=== PATIENT | male | born 1935 | race Caucasian/White ===

== ENCOUNTER 2017-08-19 08:33 | Emergency (ER) | payer MEDICARE ==
--- NOTE | 2017-08-19 08:41 | EDM.PDOC ---
ED HPI GENERAL MEDICAL PROBLEM - General Chief Complaint: Cardiovascular Problem Stated Complaint: NAUSEA,VOMITING,WEAKNESS. IN BY AMB Time Seen by Provider: 08/19/17 08:33 Source of Information: Reports: Patient History Limitations: Reports: No Limitations - History of Present Illness INITIAL COMMENTS - FREE TEXT/NARRATIVE: This 82 yo male patient was brought to the ED by [facility] due to generalized weakness, nausea/vomiting, shortness of breath and dizziness. The patient reports his weakness, shortness of breath and nausea started this morning. The patient reports his dizziness has been intermittent when he turns his head for "a while." The patient reports he is on a "pill for stomach gas." The patient reports no additional symptoms. 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 ED EXAM, GENERAL - Physical Exam Exam: See Below Exam Limited By: No Limitations General Appearance: Alert, WD/WN, Moderate Distress, Thin Eye Exam: Bilateral Eye: EOMI, Normal Inspection, PERRL Ears: Normal External Exam, Normal Canal, Hearing Grossly Normal, Normal TMs Nose: Normal Inspection, Normal Mucosa, No Blood Throat/Mouth: Other (bile tinged vomit on green and shirt) Head: Atraumatic, Normocephalic Neck: Normal Inspection, Supple, Non-Tender, Full Range of Motion Respiratory/Chest: No Respiratory Distress, Lungs Clear, Normal Breath Sounds, No Accessory Muscle Use, Chest Non-Tender Cardiovascular: Normal Peripheral Pulses, Regular Rate, Rhythm, No Edema, No Gallop, No JVD, No Murmur, No Rub GI/Abdominal: Normal Bowel Sounds, Soft, Non-Tender, No Organomegaly, No Distention, No Abnormal Bruit, No Mass (Male) Exam: Deferred Rectal (Males) Exam: Deferred Back Exam: Normal Inspection, Full Range of Motion, NT Extremities: Normal Inspection, Normal Range of Motion, Non-Tender, Normal Capillary Refill, No Pedal Edema Neurological: Alert, Oriented, CN II-XII Intact, Normal Cognition, Normal Gait, Normal Reflexes, No Motor/Sensory Deficits Psychiatric: Normal Affect, Normal Mood Skin Exam: Warm, Dry, Intact, Normal Color, No Rash Lymphatic: No Adenopathy Course - Vital Signs Last Recorded V/S: Last Vital Signs Temp 36.2 C 08/19/17 08:50 Pulse 63 08/19/17 08:50 Resp 20 08/19/17 08:50 BP 171/70 H 08/19/17 08:50 Pulse Ox 100 08/19/17 08:50 - Orders/Labs/Meds Orders: Active Orders 24 hr Category Date Time Status EKG Documentation Completion [RC] URGENT Care 08/19/17 08:33 Active Sodium Chloride 0.9% [Normal Saline] 1,000 ml Med 08/19/17 10:02 Active IV .BOLUS Medication Orders Sodium Chloride (Normal Saline) 1,000 mls @ 500 mls/hr IV .BOLUS ONE Stop: 08/19/17 12:01 Last Admin: 08/19/17 10:11 Dose: 500 mls/hr Labs: Laboratory Tests 08/19/17 08/19/17 08/19/17 Range/Units 08:42 08:42 08:42 WBC 6.6 (5.0-10.0) 10^3/uL RBC 4.45 L (4.6-6.2) 10^6/uL Hgb 13.7 L (14.0-18.0) g/dL Hct 40.2 (40.0-54.0) % MCV 90.3 (80-100) fL MCH 30.8 (27.0-34.0) pg MCHC 34.1 (33.0-35.0) g/dL Plt Count 243 (150-450) 10^3/uL Neut % (Auto) 56.4 (42.2-75.2) % Lymph % (Auto) 29.0 (20.5-50.1) % [place] % (Auto) 8.9 H (2-8) % Eos % (Auto) 4.9 H (1.0-3.0) % Baso % (Auto) 0.8 (0.0-1.0) % Sodium 138 (135-145) mmol/L Potassium 3.6 (3.6-5.0) mmol/L Chloride 104 (101-111) mmol/L Carbon Dioxide 21.0 (21.0-31.0) mmol/L Anion Gap 16.6 BUN 19 H (7-18) mg/dL Creatinine 1.3 (0.6-1.3) mg/dL Est Cr Clr Drug Dosing 46.66 mL/min Estimated GFR (MDRD) 53 BUN/Creatinine Ratio 14.61 Glucose 123 H (74-105) mg/dL Calcium 9.1 (8.4-10.2) mg/dl Magnesium 1.9 (1.8-2.5) mg/dL Total Bilirubin 0.8 (0.2-1.0) mg/dL AST 21 (10-42) IU/L ALT 15 (10-60) IU/L Alkaline Phosphatase 92 (42-121) IU/L Troponin I < 0.02 (0.00-0.02) ng/ml Total Protein 7.0 (6.7-8.2) g/dl Albumin 3.7 (3.2-5.5) g/dl Globulin 3.3 Albumin/Globulin Ratio 1.12 Amylase 51 (28-100) U/L Lipase 39 (22-51) U/L Urine Color (YELLOW) Urine Appearance (CLEAR) Urine pH (5.0-9.0) Ur Specific [place] (1.005-1.030) Urine Protein (NEGATIVE) Urine Glucose (UA) (NEGATIVE) Urine Ketones (NEGATIVE) Urine Occult Blood (NEGATIVE) Urine Nitrite (NEGATIVE) Urine Bilirubin (NEGATIVE) Urine Urobilinogen (0.2-1.0) mg/dL Ur Leukocyte Esterase (NEGATIVE) Urine RBC /HPF Urine WBC (0-5/HPF) /HPF Ur Epithelial Cells /HPF Urine Bacteria (0-FEW/HPF) /HPF 08/19/17 Range/Units 10:12 WBC (5.0-10.0) 10^3/uL RBC (4.6-6.2) 10^6/uL Hgb (14.0-18.0) g/dL Hct (40.0-54.0) % MCV (80-100) fL MCH (27.0-34.0) pg MCHC (33.0-35.0) g/dL Plt Count (150-450) 10^3/uL Neut % (Auto) (42.2-75.2) % Lymph % (Auto) (20.5-50.1) % [place] % (Auto) (2-8) % Eos % (Auto) (1.0-3.0) % Baso % (Auto) (0.0-1.0) % Sodium (135-145) mmol/L Potassium (3.6-5.0) mmol/L Chloride (101-111) mmol/L Carbon Dioxide (21.0-31.0) mmol/L Anion Gap BUN (7-18) mg/dL Creatinine (0.6-1.3) mg/dL Est Cr Clr Drug Dosing mL/min Estimated GFR (MDRD) BUN/Creatinine Ratio Glucose (74-105) mg/dL Calcium (8.4-10.2) mg/dl Magnesium (1.8-2.5) mg/dL Total Bilirubin (0.2-1.0) mg/dL AST (10-42) IU/L ALT (10-60) IU/L Alkaline Phosphatase (42-121) IU/L Troponin I (0.00-0.02) ng/ml Total Protein (6.7-8.2) g/dl Albumin (3.2-5.5) g/dl Globulin Albumin/Globulin Ratio Amylase (28-100) U/L Lipase (22-51) U/L Urine Color Yellow (YELLOW) Urine Appearance Clear (CLEAR) Urine pH 8.5 (5.0-9.0) Ur Specific [place] 1.020 (1.005-1.030) Urine Protein Negative (NEGATIVE) Urine Glucose (UA) Negative (NEGATIVE) Urine Ketones Trace H (NEGATIVE) Urine Occult Blood Negative (NEGATIVE) Urine Nitrite Negative (NEGATIVE) Urine Bilirubin Negative (NEGATIVE) Urine Urobilinogen 0.2 (0.2-1.0) mg/dL Ur Leukocyte Esterase Negative (NEGATIVE) Urine RBC 0-5 /HPF Urine WBC 0-5 (0-5/HPF) /HPF Ur Epithelial Cells Rare /HPF Urine Bacteria Occasional (0-FEW/HPF) /HPF Meds: Medications Generic Name Dose Route Start Last Admin Trade Name Freq PRN Reason Stop Dose Admin Sodium Chloride 1,000 mls @ 500 mls/hr 08/19/17 10:02 08/19/17 10:11 Normal Saline IV 08/19/17 12:01 500 mls/hr .BOLUS ONE Administration Departure - Departure Time of Disposition: 11:12 Disposition: Home, Self-Care 01 Condition: Fair Clinical Impression: Gastroenteritis Instructions: Gastritis, Adult, [id number] Forms: ED Department Discharge Care Plan Goals: The patient and family were advised of the examination, lab, EKG and x-ray results during the visit. The patient reports he is feeling better. The patient was discharged with a script for Zofran (4 mg) #20 to take 1 by mouth every 6 hours as needed. The patient should stick to a BRAT diet (Bananas, Rice, Applesauce and [place]) with frequent small sips of water. If the patient has any additional symptoms or concerns, the patient should follow-up with his primary care facility or return to the emergency department. - My Orders Last 24 Hours: My Active Orders 08/19/17 08:33 EKG Documentation Completion [RC] URGENT 08/19/17 10:02 Sodium Chloride 0.9% [Normal Saline] 1,000 ml IV .BOLUS - Assessment/Plan Last 24 Hours: My Active Orders 08/19/17 08:33 EKG Documentation Completion [RC] URGENT 08/19/17 10:02 Sodium Chloride 0.9% [Normal Saline] 1,000 ml IV .BOLUS
[2017-08-19 08:51] VITALS: BP 171/70
[2017-08-19 09:09] LABS: CHLORIDE,CL 104 mmol/L (101-111); SODIUM,NA 138 mmol/L (135-145)
--- NOTE | 2017-08-19 09:15 | CR ---
Clinical history: 82-year-old male generalized weakness. Interpretation: Calcifications arch of the thoracic aorta. Normal cardiac silhouette without cephalization of vascular flow, signs of alveolar edema or dependen t pleural effusion. No lung mass, hilar lymphadenopathy or focal lobar pneumonia. No pneumothorax. CONCLUSION: No acute cardiopulmonary abnormality.
[2017-08-19] MEDS ORDERED: Sodium Chloride 0.9% 1,000 ML IV ONE (10:02)
--- NOTE | 2017-08-21 13:48 | EKG ---
08/19/2017- GISELE MEDELLIN GENE - EKG per my reading shows sinus rhythm at the rate of 60s. [facility] /[id number]
== END 2017-08-19 11:33 | disposition home or self-care (01) ==
LOC: DL.ED 08:33
DX: K52.9 Noninfective gastroenteritis and colitis, unspecified (principal)
CPT/HCPCS: 36415; 71010; 80053; 81001; 82150; 83690; 83735; 84484; 85025; 87804; 93005; 93010; 96360; 99285; J7030; 99284

== ENCOUNTER 2018-06-03 06:54 | Emergency (ER) | payer MEDICARE ==
--- NOTE | 2018-06-03 07:00 | EDM.PDOC ---
ED HPI GENERAL MEDICAL PROBLEM - General Chief Complaint: Gastrointestinal Problem Stated Complaint: [id number] SICK WEAK Time Seen by Provider: 06/03/18 07:00 Source of Information: Reports: Patient, Family, Old Records, RN, RN Notes Reviewed History Limitations: Reports: No Limitations - History of Present Illness INITIAL COMMENTS - FREE TEXT/NARRATIVE: Pt presents to the ER from home by POV with c/o of onset of nausea with fatigue and generalized weakness yesterday. Pt states that [place] and tried to work on some mowers and equipment, but it was just too hot and he began to feel ill so he went home. Once he cooled off he felt nauseated and had no appetite. He didn't feel much better when he woke this morning so he came to the ER. He denies vomiting, diarrhea, constipation, urinary symptoms, fever, chills, abdominal pain, chest pain, or headache. Onset: Gradual Duration: Constant Location: Reports: Abdomen Quality: Reports: Other (denies pain) Severity: Moderate Improves with: Reports: None Worsens with: Reports: None Associated Symptoms: Reports: No Other Symptoms - Related Data Allergies Allergy/AdvReac Type Severity Reaction Status Date / Time No Known Allergies Allergy Verified 06/03/18 07:14 Home Meds: Home Meds Pantoprazole Sodium [Protonix] 40 mg PO DAILY 06/03/18 [History] Past Medical History Cardiovascular History: Reports: Aneurysm, Other (See Below) Other Cardiovascular History: AAA Dec 2015 Gastrointestinal History: Reports: Cholelithiasis, Gastritis, GERD Musculoskeletal History: Reports: Arthritis - Infectious Disease History Infectious Disease History: Reports: Chicken Pox, Measles - Past Surgical History Cardiovascular Surgical History: Reports: AAA Repair (indovascular sleeve AAA repair in 2016) GI Surgical History: Reports: Cholecystectomy Social & Family History - Family History Family Medical History: Unobtainable - Caffeine Use Caffeine Use: Reports: None - Living Situation & Occupation Living situation: Reports: , with Family Occupation: Retired ED ROS GENERAL - Review of Systems Review Of Systems: ROS reveals no pertinent complaints other than HPI. ED EXAM, GENERAL - Physical Exam Exam: See Below Exam Limited By: No Limitations General Appearance: Alert, WD/WN, No Apparent Distress Eye Exam: Bilateral Eye: Normal Inspection (no scleral icterus) Nose: Normal Inspection, Normal Mucosa, No Blood Throat/Mouth: Normal Inspection, Normal Lips, Normal Oropharynx, Normal Voice, No Airway Compromise, Other (dry oral membranes) Head: Atraumatic, Normocephalic Neck: Normal Inspection, Supple, Non-Tender, Full Range of Motion, Other (no nuchal rigidity) Respiratory/Chest: No Respiratory Distress, Lungs Clear, Normal Breath Sounds, No Accessory Muscle Use, Chest Non-Tender Cardiovascular: Normal Peripheral Pulses, Regular Rate, Rhythm, No Edema, No JVD , No Murmur GI/Abdominal: Normal Bowel Sounds, Soft, Non-Tender, No Distention, No Abnormal Bruit (Male) Exam: Deferred Rectal (Males) Exam: Deferred Back Exam: Normal Inspection, Full Range of Motion. No: CVA Tenderness (L), CVA Tenderness (R) Extremities: Normal Inspection, Normal Range of Motion, Non-Tender, Normal Capillary Refill, No Pedal Edema Neurological: Alert, Oriented, CN II-XII Intact, Normal Cognition, Normal Gait, No Motor/Sensory Deficits Psychiatric: Normal Affect, Normal Mood Skin Exam: Warm, Dry, Intact, Normal Color, No Rash EKG INTERPRETATION EKG Date: 06/03/18 Time: 07:22 Rhythm: Other (SR) Rate (Beats/Min): 66 [place]: LAD-Left [place] Deviation P-Wave: Present (1st degree AVB) QRS: Normal ST-T: Normal QT: Normal Comparison: No Change Course - Vital Signs Last Recorded V/S: Last Vital Signs Temp 36.1 C 06/03/18 07:00 Pulse 72 06/03/18 07:29 Resp 18 06/03/18 07:29 BP 187/83 H 06/03/18 07:00 Pulse Ox 98 06/03/18 07:29 Orthostatic Blood Pressure [ 162/76 Standing] Orthostatic Blood Pressure [ 169/79 Sitting] Orthostatic Blood Pressure [ 165/80 Supine] - Orders/Labs/Meds Orders: Active Orders 24 hr Category Date Time Status EKG 12 Lead [EKG Documentation Completion] [] STAT Care 06/03/18 07:25 Active Peripheral IV Care [RC] . DIRECTED Care 06/03/18 07:25 Active UA W/MICROSCOPIC [URIN] Stat Lab 06/03/18 08:56 Ordered Sodium Chloride 0.9% [Saline Flush] Med 06/03/18 07:25 Active 10 ml FLUSH ASDIRECTED PRN Peripheral IV Insertion Adult [OM.PC] Stat Oth 06/03/18 07:25 Ordered Medication Orders Sodium Chloride (Saline Flush) 10 ml FLUSH ASDIRECTED PRN PRN Reason: Keep Vein Open Last Admin: 06/03/18 07:51 Dose: 10 ml Labs: Laboratory Tests 06/03/18 06/03/18 06/03/18 Range/Units 07:34 07:34 07:34 WBC 7.7 (5.0-10.0) 10^3/uL RBC 4.72 (4.6-6.2) 10^6/uL Hgb 14.4 (14.0-18.0) g/dL Hct 43.3 (40.0-54.0) % MCV 91.7 (80-100) fL MCH 30.5 (27.0-34.0) pg MCHC 33.3 (33.0-35.0) g/dL Plt Count 221 (150-450) 10^3/uL Neut % (Auto) 74.4 (42.2-75.2) % Lymph % (Auto) 15.6 L (20.5-50.1) % [place] % (Auto) 6.2 (2-8) % Eos % (Auto) 3.3 H (1.0-3.0) % Baso % (Auto) 0.5 (0.0-1.0) % Sodium 139 (135-145) mmol/L Potassium 3.9 (3.6-5.0) mmol/L Chloride 105 (101-111) mmol/L Carbon Dioxide 27.0 (21.0-31.0) mmol/L Anion Gap 10.9 BUN 20 H (7-18) mg/dL Creatinine 1.4 H (0.6-1.3) mg/dL Est Cr Clr Drug Dosing 42.32 mL/min Estimated GFR (MDRD) 48 BUN/Creatinine Ratio 14.28 Glucose 124 H (74-105) mg/dL Lactic Acid 1.2 (0.5-2.2) mmol/L Calcium 9.3 (8.4-10.2) mg/dl Total Bilirubin 0.4 (0.2-1.0) mg/dL AST 20 (10-42) IU/L ALT 14 (10-60) IU/L Alkaline Phosphatase 106 (42-121) IU/L Troponin I < 0.02 (0.00-0.02) ng/ml Total Protein 7.4 (6.7-8.2) g/dl Albumin 3.8 (3.2-5.5) g/dl Globulin 3.6 Albumin/Globulin Ratio 1.06 Amylase 57 (28-100) U/L Urine Color (YELLOW) Urine Appearance (CLEAR) Urine pH (5.0-9.0) Ur Specific [place] (1.005-1.030) Urine Protein (NEGATIVE) Urine Glucose (UA) (NEGATIVE) Urine Ketones (NEGATIVE) Urine Occult Blood (NEGATIVE) Urine Nitrite (NEGATIVE) Urine Bilirubin (NEGATIVE) Urine Urobilinogen (0.2-1.0) mg/dL Ur Leukocyte Esterase (NEGATIVE) Urine RBC /HPF Urine WBC (0-5/HPF) /HPF Ur Epithelial Cells /HPF Urine Bacteria (0-FEW/HPF) /HPF Urine Mucus /LPF 06/03/18 Range/Units 08:56 WBC (5.0-10.0) 10^3/uL RBC (4.6-6.2) 10^6/uL Hgb (14.0-18.0) g/dL Hct (40.0-54.0) % MCV (80-100) fL MCH (27.0-34.0) pg MCHC (33.0-35.0) g/dL Plt Count (150-450) 10^3/uL Neut % (Auto) (42.2-75.2) % Lymph % (Auto) (20.5-50.1) % [place] % (Auto) (2-8) % Eos % (Auto) (1.0-3.0) % Baso % (Auto) (0.0-1.0) % Sodium (135-145) mmol/L Potassium (3.6-5.0) mmol/L Chloride (101-111) mmol/L Carbon Dioxide (21.0-31.0) mmol/L Anion Gap BUN (7-18) mg/dL Creatinine (0.6-1.3) mg/dL Est Cr Clr Drug Dosing mL/min Estimated GFR (MDRD) BUN/Creatinine Ratio Glucose (74-105) mg/dL Lactic Acid (0.5-2.2) mmol/L Calcium (8.4-10.2) mg/dl Total Bilirubin (0.2-1.0) mg/dL AST (10-42) IU/L ALT (10-60) IU/L Alkaline Phosphatase (42-121) IU/L Troponin I (0.00-0.02) ng/ml Total Protein (6.7-8.2) g/dl Albumin (3.2-5.5) g/dl Globulin Albumin/Globulin Ratio Amylase (28-100) U/L Urine Color Yellow (YELLOW) Urine Appearance Slightly cloudy (CLEAR) Urine pH 7.0 (5.0-9.0) Ur Specific [place] 1.015 (1.005-1.030) Urine Protein Negative (NEGATIVE) Urine Glucose (UA) Negative (NEGATIVE) Urine Ketones Negative (NEGATIVE) Urine Occult Blood Negative (NEGATIVE) Urine Nitrite Negative (NEGATIVE) Urine Bilirubin Negative (NEGATIVE) Urine Urobilinogen 0.2 (0.2-1.0) mg/dL Ur Leukocyte Esterase Negative (NEGATIVE) Urine RBC 0-5 /HPF Urine WBC 0-5 (0-5/HPF) /HPF Ur Epithelial Cells Rare /HPF Urine Bacteria Rare (0-FEW/HPF) /HPF Urine Mucus Few H /LPF Meds: Medications Generic Name Dose Route Start Last Admin Trade Name Freq PRN Reason Stop Dose Admin Sodium Chloride 10 ml 06/03/18 07:25 06/03/18 07:51 Saline Flush FLUSH 10 ml ASDIRECTED PRN Administration Keep Vein Open Discontinued Medications Generic Name Dose Route Start Last Admin Trade Name [place] PRN Reason Stop Dose Admin Sodium Chloride 1,000 mls @ 999 mls/hr 06/03/18 07:26 06/03/18 07:51 Normal Saline IV 06/03/18 08:26 999 mls/hr .BOLUS ONE Administration Ondansetron HCl 4 mg 06/03/18 07:26 06/03/18 07:51 Zofran IV 06/03/18 07:27 4 mg ONETIME ONE Administration Departure - Departure Time of Disposition: 09:25 Disposition: Home, Self-Care 01 Condition: Good Clinical Impression: Dehydration, Nausea - Discharge Information Instructions: Nausea, Adult, Dehydration, Adult, [id number] Forms: ED Department Discharge Additional Instructions: Rx: Zofran 4mg Rest, avoid prolonged exposure to the heat. Drink plenty of water. Follow up in clinic if not improved in 2 to 3 days. Return to ER if worse at any time. - My Orders Last 24 Hours: My Active Orders 06/03/18 07:25 EKG 12 Lead [EKG Documentation Completion] [RC] STAT Peripheral IV Care [RC] . DIRECTED Sodium Chloride 0.9% [Saline Flush] 10 ml FLUSH ASDIRECTED PRN Peripheral IV Insertion Adult [OM.PC] Stat 06/03/18 08:56 UA W/MICROSCOPIC [URIN] Stat - Assessment/Plan Last 24 Hours: My Active Orders 06/03/18 07:25 EKG 12 Lead [EKG Documentation Completion] [RC] STAT Peripheral IV Care [RC] . DIRECTED Sodium Chloride 0.9% [Saline Flush] 10 ml FLUSH ASDIRECTED PRN Peripheral IV Insertion Adult [OM.PC] Stat 06/03/18 08:56 UA W/MICROSCOPIC [URIN] Stat
[2018-06-03 07:01] VITALS: BP 187/83
[2018-06-03] MEDS ORDERED: Sodium Chloride 0.9% 10 ML Syringe FLUSH PRN (07:25)
[2018-06-03] MEDS ORDERED: Sodium Chloride 0.9% 1,000 ML IV ONE (07:26)
[2018-06-03] MEDS ORDERED: Ondansetron 4 MG/2 ML SDV IV ONE (07:26)
[2018-06-03 08:05] LABS: ANION GAP 10.9; CHLORIDE,CL 105 mmol/L (101-111); SODIUM,NA 139 mmol/L (135-145)
== END 2018-06-03 09:48 | disposition home or self-care (01) ==
LOC: DL.ED 06:54
DX: E86.0 Dehydration (principal); K21.9 Gastro-esophageal reflux disease without esophagitis
CPT/HCPCS: 36415; 71046; 80053; 81001; 82150; 83605; 84484; 85025; 93005; 93010; 96361; 96374; 99284; J2405; J7030; J7050

== ENCOUNTER 2021-04-29 14:45 | Emergency (ER) | payer MEDICARE ==
[2021-04-29 15:03] VITALS: BP 171/85; PULSE 73
--- NOTE | 2021-04-29 15:15 | EDM.PDOC ---
<Sanjana Sibley M - Last Filed: 04/29/21 16:53> ED HPI GENERAL MEDICAL PROBLEM - General Chief Complaint: Chest Pain Stated Complaint: CHEST / SHOULDER / ARM PAIN Time Seen by Provider: 04/29/21 15:00 Source of Information: Reports: Patient, Significant Other History Limitations: Reports: No Limitations - History of Present Illness INITIAL COMMENTS - FREE TEXT/NARRATIVE: Patient is an 86 year old male with a noncontributory PMH who presents to the ED with complaints of left shoulder pain that radiates to the left upper chest and distal left extremity. His left shoulder began hurting this morning with associated left upper extremity weakness. He denies any numbness or tingling present. He states he tried resting, but upon awakening the shoulder pain had started to radiate into his left upper chest. He denies a history of stroke, RI, or other cardiovascular events. He states his legs/feet have been swelling but are okay right now. He reports a history of abdominal aortic aneurysm which he had surgery and stent placed over 20 years ago. He also has a chronic left inguinal hernia which is reduceable. He denies history of smoking, alcohol, or drug use. His only medication is protonix for history of stomach ulcers. He denies any other medical history. Onset: Today Onset Date: 04/29/21 Location: Reports: Chest, Upper Extremity, Left, Radiates to (left upper chest and upper extremity) Quality: Reports: Ache Associated Symptoms: Reports: Cough Left Arm Pain Score (Numeric/FACES): 1 - Related Data Allergies Allergy/AdvReac Type Severity Reaction Status Date / Time No Known Allergies Allergy Verified 06/20/19 16:48 Home Meds: Home Meds Pantoprazole Sodium [Protonix] 40 mg PO DAILY 06/03/18 [History] Past Medical History HEENT History: Reports: None Cardiovascular History: Reports: Aneurysm, Other (See Below) Other Cardiovascular History: AAA Dec 2015 Respiratory History: Reports: None Gastrointestinal History: Reports: Cholelithiasis, Gastritis, GERD Genitourinary History: Reports: None Musculoskeletal History: Reports: Arthritis Neurological History: Reports: None Psychiatric History: Reports: None Endocrine/Metabolic History: Reports: None Hematologic History: Reports: None Immunologic History: Reports: None Oncologic (Cancer) History: Reports: None Dermatologic History: Reports: None - Infectious Disease History Infectious Disease History: Reports: Chicken Pox, Measles - Past Surgical History Head Surgeries/Procedures: Reports: None Cardiovascular Surgical History: Reports: AAA Repair GI Surgical History: Reports: Cholecystectomy Social & Family History - Family History Family Medical History: Unobtainable - Caffeine Use Caffeine Use: Reports: Soda - Living Situation & Occupation Living situation: Reports: , with Family Occupation: Retired ED ROS GENERAL - Review of Systems Review Of Systems: See Below Constitutional: Reports: No Symptoms HEENT: Reports: No Symptoms Respiratory: Reports: No Symptoms Cardiovascular: Reports: Chest Pain, Edema Endocrine: Reports: No Symptoms GI/Abdominal: Reports: No Symptoms, Other (inguinal hernia) Musculoskeletal: Reports: Shoulder Pain, Other (left upper extremity weakness) Skin: Reports: No Symptoms Neurological: Reports: No Symptoms ED EXAM, GENERAL - Physical Exam Exam: See Below Exam Limited By: No Limitations General Appearance: Alert, WD/WN, No Apparent Distress Eye Exam: Bilateral Eye: PERRL, Other (Possible cataracts) Ears: Normal External Exam, Hearing Grossly Normal Throat/Mouth: Normal Inspection, Normal Lips, Normal Teeth, Normal Gums, Normal Oropharynx, Normal Voice, No Airway Compromise Head: Atraumatic, Normocephalic Neck: Normal Inspection, Supple, Non-Tender, Full Range of Motion Respiratory/Chest: No Respiratory Distress, Lungs Clear, Normal Breath Sounds, No Accessory Muscle Use, Chest Non-Tender Cardiovascular: Normal Peripheral Pulses, Regular Rate, Rhythm, No Murmur GI/Abdominal: Normal Bowel Sounds, Soft, Non-Tender, No Organomegaly, No Mass, Hernia (Left inguinal, soft and nontender). No: Guarding, Rigid, Rebound Extremities: Normal Range of Motion, Pedal Edema (Trace), Other (Equal strength in upper extremities bilaterally) Neurological: Alert, Oriented, CN II-XII Intact, Normal Cognition Psychiatric: Normal Affect, Normal Mood Skin Exam: Warm, Dry, Intact, Normal Color Lymphatic: No Adenopathy #1 Interpretation EKG Date: 04/29/21 Time: 16:05 Rhythm: NSR Rate (Beats/Min): 69 [place]: LAD-Left [place] Deviation P-Wave: Present QRS: Normal ST-T: Normal QT: Normal OH/PQ Interval: 212 Comparison: NA - No Prior EKG EKG Interpretation Comments: Borderline prolonged OH interval (212), incomplete left bundle branch block, anterior Q waves possibly due to ILBBB Course - Radiology Interpretation Free Text/Narrative:: 1V Chest XR: Interpretation negative. See radiology report for additional descriptions Departure - Departure Time of Disposition: 16:11 Disposition: Home, Self-Care 01 Clinical Impression: Arthritic-like pain Qualifiers: Joint pain location: shoulder Laterality: left Qualified Code(s): M25.512 - Pain in left shoulder Instructions: Musculoskeletal Pain Forms: ED Department Discharge Additional Instructions: Follow up with PCP for management of left shoulder pain, likely due to arthritis Sepsis Event Note (ED) - Evaluation Sepsis Screening Result: No Definite Risk - Problem List & Annotations (1) Shoulder pain SNOMED Code(s): 94748193 Code(s): M25.519 - PAIN IN UNSPECIFIED SHOULDER Status: Acute Qualifiers: Chronicity: acute (2) Arthritic-like pain SNOMED Code(s): 01944743 Code(s): M25.50 - PAIN IN UNSPECIFIED JOINT Status: Acute Qualifiers: Joint pain location: shoulder Laterality: left Qualified Code(s): M25.512 - Pain in left shoulder - Problem List Review Problem List Initiated/Reviewed/Updated: Yes - Assessment/Plan Assessment:: Chronic left shoulder arthritis Plan: Plan for discharge home today May use tylenol as needed for pain Follow up with primary care provider Advance activity as tolerated For the inguinal hernia, patient declined referral to general surgery. Discussed signs/symptoms that would prompt emergent evaluation such as pain or it becoming nonreducable B[facility] <Mack Cassidy - Last Filed: 04/29/21 17:19> Course - Vital Signs Last Recorded V/S: Last Vital Signs Temp 97.1 F 04/29/21 14:57 Pulse 73 04/29/21 14:57 Resp 16 04/29/21 14:57 BP 171/85 H 04/29/21 14:57 Pulse Ox 98 04/29/21 14:57 - Orders/Labs/Meds Labs: Laboratory Tests 04/29/21 04/29/21 Range/Units 15:30 15:30 WBC 6.5 (5.0-10.0) 10^3/uL RBC 4.11 L (4.6-6.2) 10^6/uL Hgb 12.9 L D (14.0-18.0) g/dL Hct 38.9 L (40.0-54.0) % MCV 94.6 (80-100) fL MCH 31.4 (27.0-34.0) pg MCHC 33.2 (33.0-35.0) g/dL Plt Count 238 (150-450) 10^3/uL Neut % (Auto) 68.8 (42.2-75.2) % Lymph % (Auto) 17.0 L (20.5-50.1) % [place] % (Auto) 8.2 H (2-8) % Eos % (Auto) 5.1 H (1.0-3.0) % Baso % (Auto) 0.9 (0.0-1.0) % Sodium 140 (136-145) mmol/L Potassium 4.3 (3.5-5.1) mmol/L Chloride 103 (98-107) mmol/L Carbon Dioxide 30 (21-32) mmol/L Anion Gap 11.3 (7-13) mEq/L BUN 15 (7-18) mg/dL Creatinine 1.29 (0.70-1.30) mg/dL Est Cr Clr Drug Dosing 42.72 mL/min Estimated GFR (MDRD) 53 BUN/Creatinine Ratio 11.6 (No establ ref range) Glucose 92 (70-99) mg/dL Calcium 8.4 L (8.5-10.1) mg/dL Total Bilirubin 0.5 (0.2-1.0) mg/dL AST 15 (15-37) U/L ALT 22 (16-63) U/L Alkaline Phosphatase 105 (46-116) U/L Troponin I High Sens 9 (<=76) pg/mL Total Protein 6.7 (6.4-8.2) g/dL Albumin 3.1 L (3.4-5.0) g/dL Globulin 3.6 Albumin/Globulin Ratio 0.86 - Re-Assessments/Exams Free Text/Narrative Re-Assessment/Exam: 04/29/21 17:19 I personally performed or re-performed the physical examination and medical decision making. I have verified all student documentation or findings, including history, physical exam and/or medical decision making. Sepsis Event Note (ED) - Focused Exam Vital Signs: Vital Signs Temp Pulse Resp BP Pulse Ox 04/29/21 14:57 97.1 F 73 16 171/85 H 98
--- NOTE | 2021-04-29 15:46 | CR ---
EXAMINATION: Chest 1V Frontal SEX: Male AGE: 86 years CLINICAL HISTORY: 86-year-old male with chest pain. Comparison CXR 03 June 2018. Interpretation: Negative. Dense curvilinear atheromatous calcifications ectatic thoracic aorta. No abnormal mediastinal widening. Normal cardiac silhouette (size and configuration). No pulmonary vascular congestion, cephalization of flow, alveolar edema or pleural effusions. No lung mass or hilar lymphadenopathy. No alveolar infiltrates, atelectasis/collapse, or peripheral "groundglass" interstitial lung densities. No pneumothorax or pneumomediastinum.
[2021-04-29 16:00] LABS: ANION GAP 11.3 mEq/L (7-13)
== END 2021-04-29 16:52 | disposition home or self-care (01) ==
LOC: DL.ED 14:45
DX: M25.512 Pain in left shoulder (principal); K21.9 Gastro-esophageal reflux disease without esophagitis; Z79.899 Other long term (current) drug therapy
CPT/HCPCS: 36415; 71045; 80053; 84484; 85025; 93005; 93010; 99284; 99284-25

== ENCOUNTER 2024-05-14 06:22 | Observation (INO) | payer MEDICARE ==
[2024-05-14 06:53] LABS: BASOPHILS PERCENT AUTO 0.6 % (0.0-1.0); EOSINOPHILS PERCENT AUTO 5.3 % (1.0-3.0); HEMATOCRIT 39.2 % (40.0-54.0); LYMPHOCYTES PERCENT AUTO 15.2 % (20.5-50.1); MEAN CORPUSCULAR HEMOGLOBIN 30.4 pg (27.0-34.0); MEAN CORPUSCULAR HGB CONC 33.2 g/dL (33.0-35.0); MEAN CORPUSCULAR VOLUME 91.8 fL (80-100); MONOCYTES PERCENT AUTO 7.2 % (2-8); NEUTROPHILS PERCENT AUTO 71.7 % (42.2-75.2); PLATELET COUNT,PLT 272 10^3/uL (150-450); RED BLOOD CELL COUNT 4.27 10^6/uL (4.6-6.2); WHITE BLOOD CELL COUNT,WBC 6.8 10^3/uL (5.0-10.0)
[2024-05-14] MEDS: Lactated Ringers 1,000 ML IV SCH (07:07)
[2024-05-14] MEDS: Sodium Chloride 0.9% 10 ML Syringe FLUSH PRN (07:07)
[2024-05-14 07:11] LABS: ALBUMIN 2.7 g/dL (3.4-5.0); ANION GAP 12.9 mEq/L (7-13); BILIRUBIN TOTAL 0.7 mg/dL (0.2-1.0); BUN/CREATININE RATIO 10.6 (No establ ref range); CALCIUM 9.1 mg/dL (8.5-10.1); CREATININE 1.51 mg/dL (0.70-1.30); MAGNESIUM 1.6 mg/dL (1.8-2.4); POTASSIUM,K 2.9 mmol/L (3.5-5.1); PROTEIN TOTAL,TP 6.9 g/dL (6.4-8.2)
[2024-05-14 07:13] LABS: A/G RATIO 0.64
[2024-05-14] MEDS: Potassium Chloride 10 MEQ Tab.ER PO ONE (07:37)
[2024-05-14] MEDS: Magnesium Sulfate/Water 2 GM in Premix Bag 1 BAG IV ONE (07:52)
[2024-05-14] MEDS: Potassium Chloride 20 MEQ in Premix Bag 1 BAG IV ONE (07:54)
[2024-05-14] MEDS: Sodium Chloride 0.9% 1,000 ML IV ONE (07:54)
[2024-05-14 08:26] LABS: APPEARANCE,URINE CLEAR (CLEAR); BILIRUBIN,URINE NEGATIVE (NEGATIVE); COLOR,URINE YELLOW (YELLOW); GLUCOSE,URINE NEGATIVE (NEGATIVE); KETONES,URINE NEGATIVE (NEGATIVE); LEUKOCYTE ESTERASE,URINE NEGATIVE (NEGATIVE); NITRITE,URINE NEGATIVE (NEGATIVE); OCCULT BLOOD,URINE TRACE-INTACT (NEGATIVE); PH,URINE 5.5 (5.0-9.0); PROTEIN,URINE NEGATIVE (NEGATIVE); UROBILINOGEN,URINE 0.2 mg/dL (0.2-1.0)
[2024-05-14 08:58] LABS: BACTERIA,URINE FEW /HPF (0-FEW/HPF); EPITHELIAL CELLS,URINE FEW /HPF (NOT SEEN); WBC,URINE 0-5 /HPF (0-5/HPF)
[2024-05-14] MEDS ORDERED: Sodium Chloride 0.9% 1,000 ML IV SCH (10:00)
[2024-05-14] MEDS ORDERED: Non-Formulary Medication 1 Each (Omeprazole Magnesium [Prilosec Otc] 20 MG Tablet.Dr) PO PRN (12:09)
[2024-05-14] MEDS: Hydrochlorothiazide/Triamterene 25-37.5 Tab PO ONE (13:11)
[2024-05-14] MEDS: Magnesium Oxide 400 MG Tab PO SCH (17:03)
[2024-05-15] MEDS: Omeprazole 20 MG Cap.CR PO SCH (05:16)
[2024-05-15 07:01] LABS: ALBUMIN 2.9 g/dL (3.4-5.0); ANION GAP 11.9 mEq/L (7-13); BILIRUBIN TOTAL 0.8 mg/dL (0.2-1.0); BUN/CREATININE RATIO 12.2 (No establ ref range); CALCIUM 9.6 mg/dL (8.5-10.1); CREATININE 1.23 mg/dL (0.70-1.30); EST CRCL DRUG DOSING (CG) 31.66 mL/min; POTASSIUM,K 4.9 mmol/L (3.5-5.1); PROTEIN TOTAL,TP 7.2 g/dL (6.4-8.2); T4 FREE 1.2 ng/dL (0.76-1.46); TSH ULTRASENSITIVE 6.79 uIU/mL (0.36-3.74)
[2024-05-15 07:04] LABS: A/G RATIO 0.67
[2024-05-15] MEDS: Hydrochlorothiazide/Triamterene 25-37.5 Tab PO SCH (09:01)
[2024-05-15] MEDS ORDERED: hydrALAZINE 20 MG/ML SDV IVPUSH PRN (09:30)
[2024-05-15 11:32] VITALS: BP 160/75; PULSE 91
== END 2024-05-15 10:40 | disposition home or self-care (01) ==
LOC: DL.ED 06:22 → DL.MS 08:59
PROVIDERS: ADMIT Internal Medicine; ATTEND Internal Medicine
DX: N17.9 Acute kidney failure, unspecified (principal); I10 Essential (primary) hypertension; E87.6 Hypokalemia; E83.42 Hypomagnesemia; E88.09 Other disorders of plasma-protein metabolism, not elsewhere classified; E43 Unspecified severe protein-calorie malnutrition; R11.2 Nausea with vomiting, unspecified; R53.1 Weakness; K21.9 Gastro-esophageal reflux disease without esophagitis; Z79.899 Other long term (current) drug therapy
CPT/HCPCS: 36415; 80053; 81001; 82306; 83735; 84439; 84443; 84484; 85025; 93005; 93010; 96365; 96366; 96368; 99285; 99285-25; A9270-GY; G0378; J3475; J3480; J3490; J7030; J7120

== ENCOUNTER 2024-05-15 18:05 | Emergency (ER) | payer MEDICARE ==
[2024-05-15 18:37] VITALS: BP 133/81; PULSE 102
[2024-05-15] MEDS: Sodium Chloride 0.9% 10 ML Syringe FLUSH PRN (19:07)
[2024-05-15 19:16] LABS: HEMOGLOBIN 14.2 g/dL (14.0-18.0); MEAN CORPUSCULAR HEMOGLOBIN 30.6 pg (27.0-34.0); MEAN CORPUSCULAR HGB CONC 33.8 g/dL (33.0-35.0); MEAN CORPUSCULAR VOLUME 90.5 fL (80-100); PLATELET COUNT,PLT 302 10^3/uL (150-450); RED BLOOD CELL COUNT 4.64 10^6/uL (4.6-6.2); WHITE BLOOD CELL COUNT,WBC 8.6 10^3/uL (5.0-10.0)
[2024-05-15 19:18] LABS: BASOPHILS PERCENT AUTO 0.1 % (0.0-1.0); EOSINOPHILS PERCENT AUTO 0.8 % (1.0-3.0); MONOCYTES PERCENT AUTO 5.3 % (2-8); NEUTROPHILS PERCENT AUTO 86.8 % (42.2-75.2)
[2024-05-15] MEDS: Lactated Ringers 1,000 ML IV ONE (19:27)
[2024-05-15 19:34] LABS: ALBUMIN 3.2 g/dL (3.4-5.0); ANION GAP 14.2 mEq/L (7-13); BILIRUBIN TOTAL 0.9 mg/dL (0.2-1.0); CALCIUM 9.4 mg/dL (8.5-10.1); CREATININE 1.6 mg/dL (0.70-1.30); EST CRCL DRUG DOSING (CG) 24.5 mL/min; POTASSIUM,K 4.2 mmol/L (3.5-5.1); PROTEIN TOTAL,TP 7.6 g/dL (6.4-8.2)
[2024-05-15 19:37] LABS: A/G RATIO 0.73
[2024-05-15 19:58] LABS: BAND PERCENT MAN 2 %; LYMPHOCYTES PERCENT MAN 6 % (20-50); SEG NEUTROPHILS PERCENT MAN 88 % (42-75)
[2024-05-15 19:59] LABS: EOSINOPHILS PERCENT MAN 1 % (1-3); MONOCYTES PERCENT MAN 3 % (2-8)
[2024-05-15 21:11] LABS: APPEARANCE,URINE CLEAR (CLEAR); BILIRUBIN,URINE NEGATIVE (NEGATIVE); COLOR,URINE YELLOW (YELLOW); GLUCOSE,URINE NEGATIVE (NEGATIVE); KETONES,URINE NEGATIVE (NEGATIVE); LEUKOCYTE ESTERASE,URINE NEGATIVE (NEGATIVE); NITRITE,URINE NEGATIVE (NEGATIVE); OCCULT BLOOD,URINE NEGATIVE (NEGATIVE); PH,URINE 6.5 (5.0-9.0); PROTEIN,URINE NEGATIVE (NEGATIVE); UROBILINOGEN,URINE 0.2 mg/dL (0.2-1.0)
== END 2024-05-15 22:10 | disposition home or self-care (01) ==
LOC: DL.ED 18:05
DX: I95.1 Orthostatic hypotension (principal); E86.0 Dehydration; F02.C18 Dementia in other diseases classified elsewhere, severe, with other behavioral disturbance; G30.9 Alzheimer's disease, unspecified; K21.9 Gastro-esophageal reflux disease without esophagitis; Z79.899 Other long term (current) drug therapy; Z90.49 Acquired absence of other specified parts of digestive tract
CPT/HCPCS: 36415; 80053; 81003; 83735; 85025; 96360; 96361; 99284; J7120; J3490

== ENCOUNTER 2024-06-28 10:03 | Emergency (ER) | payer MEDICARE | END 2024-06-28 10:08 | disposition EXP | LOC: DL.ED 10:03 | DX: I46.9 Cardiac arrest, cause unspecified (principal); Z90.49 Acquired absence of other specified parts of digestive tract | CPT/HCPCS: 99285 ==